=== PATIENT | female | born 1990 | race Caucasian/White ===

== ENCOUNTER 2018-04-30 17:51 | Emergency (ER) | payer OTHER, SELFPAY ==
[2018-04-30 17:57] VITALS: BP 138/91; PULSE 110; RESP 18; TEMP 37.1; O2SAT 98
--- NOTE | 2018-04-30 18:03 | DI.RAD_ITS ---
SYMPTOM/DIAGNOSIS: FELL ON OUTSTRETCHED HAND, PAIN LEFT WRIST: No fracture is identified. There is no evidence of dislocation. IMPRESSION: Negative left wrist.
[2018-04-30] MEDS: Acetaminophen 500 MG TAB 1000 MG PO (18:10)
--- NOTE | 2018-04-30 18:11 | ED.GENADUL_ITS ---
Discharge Plan Disposition Patient Disposition: HOME Condition: Good Discharge Details Chief Complaint: Orthopedic Clinical Impression: Acute pain of left wrist Primary Care Provider: MOISÉS KUHN ED Provider: Reji Calabrese Home Meds and New Rx's Prescriptions: No Action acetaminophen [Tylenol Extra Strength] 500 MG tablet 1,000 mg PO Q6H PRN RF: 0 bupropion HCl [Wellbutrin XL] 300 MG tablet extended release 24 hr 300 mg PO DAILY Qty: 30 RF: 0 dextroamphetamine-amphetamine [Adderall] 15 MG tablet 15 mg PO TID RF: 0 NuvaRing 1 EACH ring 1 ea VG monthly Qty: 3 RF: 3 ibuprofen 200 MG tablet 200 mg PO PRN PRNRF: 0 gabapentin 600 mg tablet 600 mg PO TID 30 Days Qty: 90 RF: 5 Discharge Instructions Instructions: Wrist Injury (ED) Additional Instructions: Please take Tylenol and Motrin as needed for pain. Please continue to use ice. Please use the wrist splint as directed. These follow-up with your primary care provider or orthopedic surgeon as soon as possible for reassessment. If your pain persists greater than a week you may need a repeat x-ray imaging. If you notice any worsening of your symptoms, or any new symptoms such as vomiting, diarrhea, fever, chills, shortness of breath, chest pain, numbness, weakness, or fainting , please return immediately to the emergency department for reevaluation. Please follow up with your primary care provider as soon as possible for reassessment and reevaluation. As always, it was a pleasure participating in your medical care today. Referrals: MOISÉS KUHN [Primary Care Provider] - Medical Decision Making This is a pleasant 28-year-old female who presents with left lateral wrist pain at the distal radius and anatomic snuffbox that occurred 6 hours ago after falling while snowboarding. Pain is made worse with movement of the thumb. Tenderness over the distal radius and anatomical snuffbox. Despite complaint of atypical sensation on the thumb she still demonstrates intact two- point discrimination up to 5 mm on the thumb for both pinprick and light touch. We will get an x-ray to evaluate for any acute fracture of the distal radius or carpals. I do feel that the patient would benefit from a thumb spica splint. We will give Tylenol here. Patient demonstrates an otherwise normal neurovascular exam. No significant joint or tendon laxity at the thumb. No clinical evidence of skiers thumb or gamekeeper's thumb. 6:41 PM X-ray results have returned and showed no evidence of acute fracture including any evidence of a scaphoid fracture. However because of the location of the patient's pain we will put her in a thumb spica wrist splint, and referred for eventual orthopedic or PCP follow-up. Recommend continue Tylenol and Motrin and ice as needed for pain. With no decrease in two-point discrimination, I do not feel that any emergent orthopedic evaluation is indicated, however she certainly needs follow-up. I have extensively reviewed the treatment plan and discharge instructions with the patient. I have addressed all patient concerns at this time. The patient was made aware of what symptoms to monitor for that would warrant a return to the emergency department. Discussed the plan with the patient, they demonstrate verbal understanding and agreement with our assessment and plan at this time. HPI General Date/Time Provider Initiated Documentation: 04/30/18 17:54 . HPI Narrative: Beth simmons is a pleasant 28-year-old female with no significant past medical history who presents today for evaluation of left wrist pain. She was snowboarding when she fell backwards and caught herself with her left wrist. She is right-hand dominant. She had immediate pain at the lateral aspect of the wrist by the distal radius and the anatomical snuffbox. She has been in a splint made by the amount ever since. It is been 6 hours since the initial incident. Patient denies any significant swelling, numbness or tingling. She denies any bleeding or bruising. She has taken ibuprofen. Pain is made worse with moving, improved by ibuprofen. No other complaints or modifying factors at this time. Related Data Home Medications Medication Instructions Recorded Confirmed acetaminophen [Tylenol Extra 1,000 mg PO Q6H PRN tab-cap 06/17/16 04/30/18 Strength] bupropion HCl [Wellbutrin XL] 300 mg PO DAILY #30 tab-cap 08/01/16 04/30/18 dextroamphetamine-amphetamine 15 mg PO TID tab-cap 08/30/16 04/30/18 [Adderall] NuvaRing 1 ea VG monthly #3 vag.ring 03/14/17 04/30/18 ibuprofen 200 mg PO PRN PRN 07/21/17 04/30/18 gabapentin 600 mg tablet 600 mg PO TID 30 Days #90 tab 12/31/17 04/30/18 Previous Rx's Medication Instructions Recorded NuvaRing 1 ea VG monthly #3 vag.ring 03/14/17 gabapentin 600 mg tablet 600 mg PO TID 30 Days #90 tab 12/31/17 Allergies Allergy/AdvReac Type Severity Reaction Status Date / Time Penicillins Allergy Unknown Unverified 04/30/18 18:06 General Stated Complaint: Orthopedic REY: 4 Review of Systems Review of Systems All systems reviewed & are unremarkable except as noted in HPI and below PFSH Medical History ADHD (attention deficit hyperactivity disorder), inattentive type Anxiety Chronic back pain Depression Right hip pain Ventricular premature beats Surgical History Reduction mammoplasty (~2006) Family History Mother Lupus Osteoporosis Hyperthyroidism Father Substance abuse Essential hypertension Grandfather Heart disease Grandfather No problems noted. Grandmother No problems noted. Grandmother No problems noted. Sister Hyperthyroidism Niece Hyperthyroidism Sister Hypothyroidism Brother No problems noted. Social History current occupational status: employed current occupation: photography Smoking and Tabacco status: Former Tobacco Use Exam Narrative Exam Narrative: 1.Const: Well-nourished, Well-developed, appearing stated age 2.Eyes: PERRL, no conjunctival injection, and symmetrical lids. 3.ENT: Atraumatic external nose and ears. Moist MM. Neck: Symmetric, trachea midline, No thyromegaly. 4.CVS: +S1/S2, No murmurs or gallops. Peripheral pulses 2+ and equal in all extremities. Brisk capillary refill in all extremities. 5.RESP: Unlabored respiratory effort. Clear to auscultation bilaterally. No wheezes rales or rhonchi 6.GI: Soft, Nontender/Nondistended, No hepatosplenomegaly. No guarding or rebound. 7.MSK: Normocephalic/Atraumatic, Extremities w/o deformity. No cyanosis or clubbing. Symmetrically palpable radial and ulnar pulses. Left hand: Capillary refill <2 seconds to all digits. Intact sensation to light touch of the radial, median and ulnar nerves demonstrated by testing in the dorsal web space of the thumb, the distal palmar aspect of the index finger, and the lateral surface of the fifth finger. 2 point discrimination intact to 5mm of discrimination in the affected digit, however the patient does have subjective alteration of sensation over the medial and lateral aspect of the thumb. In spite of this two-point discrimination is still intact and not reduced compared to the other fingers. 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 Intact recurrent median nerve as demonstrated by ability to move thumb fully through opposition, abduction and flexion, however significant movement is reduced secondary to pain with movement. Palpation of the wrist demonstrates pain noted at the distal radius in the anatomical snuffbox. No other significant abnormalities. 8.Skin: Warm, Dry. No rashes or lesions. 9.Neuro: loan assistant II-XII grossly intact. Sensation grossly intact, no focal neurologic deficits. 10.Psych: (AAO) x3. Appropriate mood and affect Course Vital Signs Temperature 37.1 C 04/30/18 17:57 Pulse 110 H 04/30/18 17:57 Respiratory Rate 18 04/30/18 17:57 Blood Pressure 138/91 H 04/30/18 17:57 Pulse Oximetry 98 04/30/18 17:57 Temperature 37.1 C 04/30/18 17:57 Temperature Source Tympanic 04/30/18 17:57 Pulse 110 H 04/30/18 17:57 Respiratory Rate 18 04/30/18 17:57 Blood Pressure 138/91 H 04/30/18 17:57 Blood Pressure Position Sitting 04/30/18 17:57 Pulse Oximetry 98 04/30/18 17:57 Oxygen Delivery Method Room Air 04/30/18 17:57 Oxygen Flow Rate 0 04/30/18 17:57 Pain Level 9 04/30/18 17:57
--- NOTE | 2018-04-30 18:38 | DI.VRAD_ITS ---
EXAM: XR Left Wrist Complete, 3 or more Views EXAM DATE/TIME: 04/30/2018 6:04 PM CLINICAL HISTORY: 28 years old, female; Pain; Wrist; Left; Additional info: Foosh, pain at distal rad/snuff box TECHNIQUE: XR Left wrist 3 or more views. COMPARISON: No relevant prior studies available. FINDINGS: Bones/joints: No displaced fracture or dislocation. Normal bone density. Soft tissues: Swelling of the dorsal wrist soft tissues. IMPRESSION: No fracture. Dictated and Authenticated by: Dylon Diallo MD. Ordering:SHARMIN Mendoza MD
[2018-04-30 18:50] VITALS: BP 138/91; PULSE 110; RESP 18; TEMP 37.1; O2SAT 98
== END 2018-04-30 18:50 | disposition home or self-care (01) ==
PROVIDERS: Emergency Provider Student in an Organized Health Care Education/Training Program; PCP Internal Medicine
DX: M25.532 Pain in left wrist (principal)
CPT/HCPCS: 99283; 73110; 99282; L3807

== ENCOUNTER → 2018-06-30 | Outpatient (CLI) | payer OTHER, SELFPAY ==
--- NOTE | 2018-06-30 06:00 | DI.RAD_ITS ---
SYMPTOM/DIAGNOSIS: LUMBAR RADICULOPATHY, INJECTION C-ARM: Fluoroscopy Time: 25.6 seconds Fluoroscopy was utilized by Dr. Zamorano during the performance of a lumbar epidural steroid injection. Please refer to the procedure report for complete details.
[2018-06-30 07:51] VITALS: BP 129/82; PULSE 88; RESP 18; TEMP 36.7; O2SAT 99
[2018-06-30] MEDS: Midazolam 2 MG/2 ML VIAL IVP ×2 (08:17→08:21)
[2018-06-30] MEDS: Lactated Ringers 1,000 ML 80 ML IV ×2 (08:26→08:29)
[2018-06-30 08:29] VITALS: BP 126/71; PULSE 73; RESP 12; O2SAT 100
--- NOTE | 2018-06-30 08:29 | PDOC.PAIN ---
Pain Clinic Procedure Note Current Active Problems Problem Status Onset Lumbar radiculitis Acute Lumbar Epidural Steroid Injection Procedure Note COMMENTS: I reviewed her clinic note from Ms. Valenzuela from this clinic on 06/24/18. I reviewed her most recent lumbar spine MRI. She did great with her last LESI from 09/17/17. SHAMIR HARPER has been referred to the [facility] for lumbar epidural steroid injection. The patient was greeted by the nurse who verified patients name and . Patient was then taken to the fluoroscopy suite. The patient was interviewed and the medial record reviewed. There were no medical, pharmacologic, radiographic, or other structural contraindications to attempting fluoroscopically guided lumbar epidural steroid injection. Risks and expected side effects as well as potential benefits of the procedure were reviewed and voiced concerns expressed. The patient consent form was signed and witnessed. Standard patient time-out procedure was performed. The patient was placed in the prone position on the fluoroscopy table and automated blood pressure cuff and pulse oximeter applied. The skin entry point for entering/approaching the epidural space at L5-S1 and marked. Following thorough chlorhexadine preparation of the skin and draping and 1% lidocaine infiltration of the skin entry point and subcutaneous tissues, a 18 gauge Touhy needle was placed under fluoroscopic guidance and with loss of resistance technique into the epidural space. Needle tip placement and depth were aided and confirmed by fluoroscopy. There was no paresthesia or return of blood or CSF through the needle. 1 cc's of Omnipaque 240 was injected with clear epidural spread confirmed with fluoroscopy. 80mg depomedrol was injected. There was not any unusual discomfort expressed by SHAMIR HARPER. Patient's vital signs were stable throughout the procedure and were as recorded in nursing records. Follow up plans and appointments were discussed with patient. Post procedure instruction was given as documented in nursing records and having met discharge criteria and was discharged from the [facility]. COMMENTS: If this procedure is found to be effective, it can be completed up to 3 times per 12 months.
[2018-06-30] MEDS: Omnipaque 240 MG/ML 50 ML BTL IJ (08:30)
[2018-06-30] MEDS: methylPREDNISolone ACETATE 40 MG/ML VIAL IJ (08:30)
== END ==
PROVIDERS: PCP Internal Medicine; Visit Provider Preventive Medicine Occupational Medicine
DX: M54.16 Radiculopathy, lumbar region (principal)
CPT/HCPCS: 62323; 72100; J1030; J2250; Q9967

== ENCOUNTER 2018-07-24 13:35 | Outpatient (REF) | payer OTHER, SELFPAY | END 2018-07-24 13:55 | LOC: LBN 13:35 | PROVIDERS: PCP Internal Medicine; Visit Provider Nurse Practitioner Women's Health | DX: R82.90 Unspecified abnormal findings in urine (principal) | CPT/HCPCS: 87077; 87086; 87186 ==

== ENCOUNTER 2018-08-25 07:41 | Outpatient (CLI) | payer OTHER, SELFPAY ==
--- NOTE | 2018-08-25 06:00 | DI.RAD_ITS ---
SYMPTOM/DIAGNOSIS: LUMBAR RADICULOPATHY C-ARM FLUOROSCOPY OF LUMBAR SPINE: Fluoroscopy Time: 30 sec Fluoroscopy was provided for guidance with Pain Clinic injection. Please see procedure note for details.
[2018-08-25 07:52] VITALS: BP 120/87; PULSE 77; RESP 18; TEMP 36.5; O2SAT 99
[2018-08-25 08:13] LABS: HCG Qual (Urine) Negative
[2018-08-25] MEDS: Midazolam 2 MG/2 ML VIAL IVP (08:33)
[2018-08-25] MEDS: Lactated Ringers 1,000 ML 80 ML IV (08:34)
[2018-08-25 08:41] VITALS: BP 111/65; PULSE 75; RESP 18; O2SAT 100
--- NOTE | 2018-08-25 08:42 | PDOC.PAIN ---
Pain Clinic Procedure Note Current Active Problems Problem Status Onset Lumbar radiculitis Acute LUMBAR / SACRAL TRANSFORAMINAL INJECTION SHAMIR HARPER has been referred to the [facility] for a transforaminal nerve root block and steroid injection. COMMENTS: This is her second right L5 TFESI. Her first one was 06/30/18. Patient was interviewed and the medical record reviewed. There were no medical, pharmacologic, radiographic or other structural contraindications to attempting fluoroscopically guided transforaminal nerve root block and epidural steroid injection. Risks and expected side effects as well as potential benefit of the procedure were reviewed and voiced concerns addressed. The printed consent form was signed and witnessed. Standard time-out procedure was performed. Patient was placed in the prone position on the fluoroscopy table and automated blood pressure cuff and pulse oximeter applied. Fluoroscopy was utilized to identify the right [id number] foramen between L5 and S1. A skin jonathan was made for the needle insertion site. A Chlorhexadine prepwas carried out, and sterile drapes were applied. Local anesthesia was achieved in the skin and subcutaneous tissues. A 22 gauge 5 curved tip spinal needle was then inserted, advanced with fluoroscopic guidance into the neural foramen, confirmed on the lateral view. After negative aspiration, 1 ml of Omnipaque 240 was injected confirming position in A/P and lateral views. This showed a good spread of dye transforaminally into the epidural space. There was no vascular update with contrast injection under continuous fluoroscopy. 15 mg of Dexamethasone was injected, followed by 0.5 ml of 1% Xylocaine flush for the nerve root block, as well. There was no unusual discomfort expressed.The needle was withdrawn. The patient tolerated the procedure well. A Band-Aid was applied. Vital signs were stable throughout the procedure and were as recorded in nursing records. If given, dosages of intravenous drugs for anxiolysis and analgesia were documented in nursing records. Follow up plans and appointments were discussed. Post procedure instruction was given as documented in nursing records and patient was discharged in the care of an identified crew car driver. COMMENTS: Complete relief of her right leg pain after the procedure. CC: MOISÉS KUHN
[2018-08-25] MEDS: Omnipaque 240 MG/ML 50 ML BTL IJ (08:43)
[2018-08-25] MEDS: Dexamethasone Sod. Phos./Pres-Free 10 MG/ML VIAL IJ (08:43)
== END 2018-08-25 08:01 ==
PROVIDERS: PCP Internal Medicine; Visit Provider Preventive Medicine Occupational Medicine
DX: M54.16 Radiculopathy, lumbar region (principal)
CPT/HCPCS: 64483; 72100; 81025; J2250; Q9967

== ENCOUNTER 2018-09-17 15:28 | Emergency (ER) | payer OTHER, SELFPAY ==
[2018-09-17 15:33] VITALS: BP 152/103; PULSE 92; RESP 20; TEMP 36.7; O2SAT 93
--- NOTE | 2018-09-17 16:33 | ED.GENADUL_ITS ---
Discharge Plan Disposition Patient Disposition: HOME Condition: Stable Discharge Details Chief Complaint: Nk/Back Pain Clinical Impression: Lumbar radicular pain, Sciatica of right side Primary Care Provider: MOISÉS KUHN ED Provider: Maurice Barragan Home Meds and New Rx's Prescriptions: New hydrocodone-acetaminophen [[place]] 5-325 mg tablet 1 tab PO Q6H PRN (Reason: pain) Qty: 8 RF: 0 prednisone 20 mg tablet 20 mg PO DAILY Qty: 10 RF: 0 Continued gabapentin 600 mg tablet 600 mg PO TID 30 Days Qty: 90 RF: 5 acetaminophen [Tylenol Extra Strength] 500 MG tablet 1,000 mg PO Q6H PRN RF: 0 bupropion HCl [Wellbutrin XL] 300 MG tablet extended release 24 hr 450 mg PO DAILY Qty: 30 RF: 0 dextroamphetamine-amphetamine [Adderall] 15 MG tablet 15 mg PO TID RF: 0 ibuprofen 200 MG tablet 800 mg PO PRN PRNRF: 0 NuvaRing 0.12-0.015 mg/24 hr ring 1 vag ring VG monthly Qty: 9 RF: 6 Discharge Instructions Instructions: Sciatica (ED) Additional Instructions: Continue to take your normally prescribed home medications and follow-up with your primary care provider as already arranged for reassessment. Return to the emergency department for any fever, saddle anesthesia, significant change to your symptoms. Referrals: MOISÉS KUHN [Primary Care Provider] - (Keep your appointment as scheduled or follow-up next week for reassessment if not improving) Discharge Data Discharge Date/Time-TO BE ENTERED AT DEPARTURE: 09/17/18 17:36 Medical Decision Making Patient presenting to the emergency department for chief complaint of back pain. Patient states long ongoing history of back pain since she was 9 years of age. Patient reports that she has been seeing the pain clinic for back injections but have not been helping much. She states that she awoke at approximately 545 this morning with severe back pain radiating down her right leg. Patient does state that this is similar in nature to previous episodes but more severe and intense. Patient denies any fever, change in bowel or bladder function, saddle anesthesia. Physical exam shows significant tenderness to lumbar spine and paraspinal tissue with severe tenderness to palpation of the right sciatic notch and right buttock. Pulses and DTRs are intact bilateral lower extremities and equal. Physical exam shows no signs of cauda equina, doubt central cord syndrome, doubt epidural abscess. Physical exam is consistent with sciatica and pain down the S2 nerve root. Plan to check and postvoid residual, give limited prescription of narcotics, and place patient on steroids on top of her other medications she already takes for her chronic back pain. Postvoid residual showed 18 mL's in the bladder which I feel is appropriate within normal limits. Patient given 1 [place] and prednisone in the emergency department and prescription for similar to use at home. Drug database was queried and no signs of narcotic abuse are noted. Narcotic consents were signed and discussed with patient nonnarcotic pain therapies that she may use. Return precautions discussed. After discussion of diagnosis and plan of care patient has no further needs, questions, or concerns and states clear understanding to return to the emergency department for any worsening symptoms. HPI General Mode of arrival: wheelchair . Date/Time Provider Initiated Documentation: 09/17/18 15:47 . Limitations to Documentation: no limitations . Information obtained by: patient and RN notes reviewed . History of Present Illness 28 year old F presents to the emergency department with the chief complaint of back pain, described as severe and similar to prior episodes, with intensity rated at 10. Quality is described as sharp, and is localized to the back. Patient extremity (right). Patient started experiencing this hour(s) (10) and it has been constant. No relieving factors improve symptom(s), No exacerbating factors reported . Patient notes no other symptoms.. Patient did receive the following treatments prior to arrival, NSAID Related Data Home Medications Medication Instructions Recorded Confirmed acetaminophen [Tylenol Extra 1,000 mg PO Q6H PRN tab-cap 06/17/16 09/17/18 Strength] bupropion HCl [Wellbutrin XL] 450 mg PO DAILY #30 tab-cap 08/01/16 09/17/18 dextroamphetamine-amphetamine 15 mg PO TID tab-cap 08/30/16 09/17/18 [Adderall] ibuprofen 800 mg PO PRN PRN 07/21/17 09/17/18 gabapentin 600 mg tablet 600 mg PO TID 30 Days #90 tab 06/24/18 09/17/18 etonogestrel-ethinyl estradiol 1 vag ring VG monthly #9 each 09/02/18 09/17/18 0.12 mg -0.015 mg/24 hr vaginal ring hydrocodone-acetaminophen [[place]] 1 tab PO Q6H PRN #8 tab 09/17/18 prednisone 20 mg PO DAILY #10 tab 09/17/18 Previous Rx's Medication Instructions Recorded gabapentin 600 mg tablet 600 mg PO TID 30 Days #90 tab 06/24/18 etonogestrel-ethinyl estradiol 1 vag ring VG monthly #9 each 09/02/18 0.12 mg -0.015 mg/24 hr vaginal ring hydrocodone-acetaminophen [[place]] 1 tab PO Q6H PRN #8 tab 09/17/18 prednisone 20 mg PO DAILY #10 tab 09/17/18 Allergies Allergy/AdvReac Type Severity Reaction Status Date / Time Penicillins Allergy Unknown Unverified 09/17/18 15:37 General Stated Complaint: Nk/Back Pain REY: 3 Review of Systems Constitutional Denies fever(s) Cardiovascular Denies chest pain and Denies dyspnea on exertion Respiratory Denies cough and Denies dyspnea on exertion Gastrointestinal Denies abdominal pain, Denies change in bowel habits, Denies diarrhea, Denies nausea and Denies vomiting Genitourinary Denies urinary incontinence Musculoskeletal Reports as per HPI and Reports back pain Neurologic Denies sensory deficit [facility] Medical History ADHD (attention deficit hyperactivity disorder), inattentive type Anxiety Anxiety (Acute 03/07/16) Chronic back pain Contraception (Acute 03/14/17) Depression Depression (Acute 03/07/16) Right hip pain Ventricular premature beats Surgical History H/O bilateral breast reduction surgery (Acute) Family History Mother Lupus Osteoporosis Hyperthyroidism Father Substance abuse Essential hypertension Grandfather Heart disease Grandfather No problems noted. Grandmother No problems noted. Grandmother No problems noted. Sister Hyperthyroidism Niece Hyperthyroidism Sister Hypothyroidism Brother No problems noted. Social History Smoking/Tobacco Use Status: Former Tobacco Use Alcohol Intake: current Alcohol Intake frequency: holidays/special occasions only Alcohol type: beer, wine and hard liquor Drug use: Daily Substance use type: marijuana Details: Last time used last night current occupation: photography Do you feel safe in your relationship?: Yes Female Reproductive History Menstrual Age of Menarche: 9 control method: vaginal ring History History 4 Para 2 Hx # Term Pregnancies Multiple births Hx # Pregnancies Ectopic pregnancies AB induced Hx Number of Living Children AB spontaneous Exam Const General: cooperative and no acute distress Orientation: alert, awake and oriented x3 Neck Neck: normal visual inspection, full ROM and no meningeal signs Resp Effort & Inspection: normal respiratory effort Auscultation: clear to auscultation bilaterally Cardio Rate: regular rate Rhythm: regular rhythm Heart Sounds: S1 normal and S2 normal GI Palpation: no hepatosplenomegaly, no aortic enlargement, no masses and no pulsatile masses Back/Spine/Pelvis Thoracic/Lumbar Spine: pain with thoraco-lumbar ROM, paraspinal tenderness (right lower lumbar), thoraco-lumbar ROM limited, No thoracic spinal tenderness, lumbar spinal tenderness and straight leg raise positive Pelvis: no pain with anterior-posterior compression, no pain with lateral compression, buttock tenderness on the right and sciatic notch tenderness on the right Neuro General: alert, awake and oriented x3 DTR's: Rt Patellar: 2+, Lt Patellar: 2+, Rt Ankle: 2+ and Lt Ankle: 2+ Extrem Right lower extremity: hip/thigh Details: normal to inspection, knee Details: normal to inspection and lower leg Details: normal to inspection Course Vital Signs Temperature 36.7 C 09/17/18 15:33 Pulse 92 H 09/17/18 15:33 Respiratory Rate 20 09/17/18 15:33 Blood Pressure 152/103 H 09/17/18 15:33 Pulse Oximetry 93 L 09/17/18 15:33 Temperature 36.7 C 09/17/18 15:33 Temperature Source Skin 09/17/18 15:33 Pulse 92 H 09/17/18 15:33 Respiratory Rate 20 09/17/18 15:33 Respiratory Effort Non-Labored 09/17/18 15:41 Blood Pressure 152/103 H 09/17/18 15:33 Blood Pressure Position Sitting 09/17/18 15:33 Pulse Oximetry 93 L 09/17/18 15:33 Oxygen Delivery Method Ambu-Bag 09/17/18 15:33 Oxygen Flow Rate 0 09/17/18 15:33 Pain Level 10 07/18/19 15:33
[2018-09-17] MEDS: HYDROcodone 5/Acetaminophen 325 TAB PO (17:02)
[2018-09-17] MEDS: predniSONE 20 MG TAB 60 MG PO (17:03)
[2018-09-17 17:47] VITALS: BP 130/91; PULSE 68; RESP 18; O2SAT 99
== END 2018-09-17 17:36 | disposition home or self-care (01) ==
PROVIDERS: Emergency Provider Nurse Practitioner Family; PCP Internal Medicine
DX: M54.16 Radiculopathy, lumbar region (principal); M54.31 Sciatica, right side
CPT/HCPCS: 81025; 99283; J7512

== ENCOUNTER 2020-05-19 05:04 | Outpatient (CLI) | payer OTHER, SELFPAY ==
--- NOTE | 2020-05-19 | DI.RAD_ITS ---
EXAM: XR LUMBAR SPINE COMPLETE CLINICAL HISTORY: CHRONIC LOW BACK PAIN, RECENT SURGERY L4-5. TECHNIQUE: 2D digital imaging was performed. COMPARISON: CR LUMBAR SPINE COMPLETE from 03/30/2017 CR LUMBAR SPINE COMPLETE from 03/30/2017 MR MRI LSPINE W/O CNRST from 07/08/2017 MR MRI LSPINE W/O CNRST from 07/08/2017 FINDINGS: There is partial sacralization of L5. The left transverse process is sacralized. The vertebral bodi es are well maintained in height. There is mild narrowing of the L4-5 disc space. The remaining dis c spaces are well maintained. There are mild facet degenerative changes at L4-5. No spondylolysis o r spondylolisthesis is seen. IMPRESSION: Mild degenerative changes at L4-5. DATA REPOSITORY: RADIATION DOSE DELIVERED:
== END 2020-05-19 05:24 ==
PROVIDERS: Visit Provider Nurse Practitioner Acute Care
DX: M47.816 Spondylosis without myelopathy or radiculopathy, lumbar region (principal)
CPT/HCPCS: 72110

== ENCOUNTER 2020-07-06 03:32 | Outpatient (CLI) | payer OTHER, SELFPAY ==
[2020-07-06 08:20] LABS: Abs Immature Grans 0.05 10^3/uL (0.0-0.06); Absolute Basophil Count 0.07 10^3/uL (0.0-0.2); Absolute Eosinophil Count 0.55 10^3/uL (0.0-0.7); Absolute Neutrophil Count 9.29 10^3/uL (1.2-6.7); Basophils % 0.5; HGB 13.7 g/dL (11.2-15.7); Immature Grans % 0.4; Lymphocytes % 18.7; MCH 32.9 pg (27.0-33.0); MCHC 34.3 % (32.0-36.0); MCV 96.2 fL (80-95); MPV 9.7 fL (8.0-11.0); Monocytes % 9.4; Nucleated RBC 0 %; Platelet Count 347 10^3/uL (130-400); RBC 4.16 10^6/uL (3.93-5.22); RDW 12.7 % (11.7-14.6); WBC 13.87 10^3/uL (4.4-10.8)
[2020-07-06 08:21] LABS: Absolute Lymphocyte Count 2.59 10^3/uL (1.2-3.4)
[2020-07-06 09:16] LABS: ALT 25 U/L (14-59); AST 15 U/L (15-37); Albumin 3.9 g/dL (3.4-5.0); Alkaline Phosphatase 95 U/L (46-116); Anion Gap 5.8 mmol/L (3-11); BUN 8 mg/dL (7-18); Bilirubin, Total 0.3 mg/dL (0.2-1.0); CO2 32.2 mmol/L (21.0-32.0); CREATININE 0.9 mg/dL (0.55-1.02); Chloride 105 mmol/L (98-107); Glucose 77 mg/dL (74-106); Magnesium 1.8 mg/dL (1.8-2.4); Sodium 143 mmol/L (136-145); TSH 1.07 uIU/mL (0.36-3.74)
[2020-07-06 09:32] LABS: Calculated LDL 142 mg/dL (<100); Cholesterol 234 mg/dL (<200); HDL Cholesterol 51 mg/dL (40-60); Triglyceride 209 mg/dL (<150)
== END 2020-07-06 03:33 | disposition home or self-care (01) ==
PROVIDERS: Visit Provider Nurse Practitioner Acute Care
DX: F33.9 Major depressive disorder, recurrent, unspecified (principal); Z13.220 Encounter for screening for lipoid disorders; R25.2 Cramp and spasm
CPT/HCPCS: 36415; 80053; 80061; 83735; 84443; 85025

== ENCOUNTER 2020-07-17 09:59 | Outpatient (REF) | payer OTHER, SELFPAY ==
--- NOTE | 2020-07-17 08:20 | PAPFT_PTH ---
PATIENT: Alexandra Terrazas LOC: [facility] U#:[id number] AGE/SX: 30/F ROOM: RE07/17/[address]: Nancy Rich NP : [id number] BED: DIS: 07/17/2020 SPEC #: [id number] RECD: 07/17/20 12:54 STATUS: ED REQ #: [id number] LISSETTE: 07/17/20 08:[address]: Layla NAJERA,Nancy DEPT: [facility] Cytology RECD BY: Concha Mcgarry ENTERED: 07/17/20 12:54 SP TYPE: PAPFT OT DR: Unknown,Unknown Tissues: 1 - CX/ENDOCX FOR PAP SMEARS Procedures: PAP THIN PREP/UVM Screening HPV DNA PROBE Comments: [id number]
== END 2020-07-17 10:00 | disposition home or self-care (01) ==
LOC: LBN 09:59
PROVIDERS: Visit Provider Nurse Practitioner Women's Health
DX: Z12.4 Encounter for screening for malignant neoplasm of cervix (principal); Z11.51 Encounter for screening for human papillomavirus (HPV)
CPT/HCPCS: 88142; 87624

== ENCOUNTER 2020-10-30 21:12 | Emergency (ER) | payer OTHER, SELFPAY ==
[2020-10-30 21:17] VITALS: BP 146/96; PULSE 105; RESP 20; TEMP 36.4; O2SAT 99
[2020-10-30] MEDS: HYDROmorphone 2 MG/ML VIAL (21:26)
--- NOTE | 2020-10-30 21:30 | DI.RAD_ITS ---
Exam(s) XR ANKLE RT COMPLETE EXAM: XR ANKLE RT COMPLETE CLINICAL HISTORY: trauma. TECHNIQUE: 2D digital imaging was performed. COMPARISON: No exams were available for comparison FINDINGS: BONES: There is a comminuted fracture in the distal 3rd of the right fibula. This lies 8 cm above th e ankle joint. The fracture is mildly displaced. There is a transverse fracture through the medial malleolus with mild diastasis. There is a mildly displaced fracture of the posterior malleolus. No bony destructive lesion is seen. JOINTS: There is widening of the ankle mortise. SOFT TISSUE: Soft tissue swelling about the ankle is noted particularly medially. IMPRESSION: 1. Fractures involving the distal tibia and fibula as described above. 2. Widening of the ankle mortise. DATA REPOSITORY: RADIATION DOSE DELIVERED:
--- NOTE | 2020-10-30 21:54 | W.ED.GENAD ---
Discharge Plan Disposition Patient Disposition: HOME Condition: Stable Discharge Details Clinical Impression: Closed displaced trimalleolar fracture of right ankle Primary Care Provider: Andrews De Jesus ED Provider: Ramon Dutton Home Meds and New Rx's Prescriptions: Continued escitalopram oxalate 20 mg tablet 20 mg PO DAILY RF: 0 acetaminophen [Tylenol Extra Strength] 500 MG tablet 1,000 mg PO Q6H PRN RF: 0 bupropion HCl [Wellbutrin XL] 300 MG tablet extended release 24 hr 150 mg PO DAILY Qty: 30 RF: 0 dextroamphetamine-amphetamine [Adderall] 15 MG tablet 15 mg PO BID RF: 0 ibuprofen 200 MG tablet 800 mg PO PRN PRNRF: 0 gabapentin 600 mg Tablet Extended Release 24 Hr 600 mg PO DAILY RF: 0 Discharge Instructions Instructions: Oxycodone, Rapid Release (By mouth), Ankle Fracture (ED) Additional Instructions: Take ibuprofen and Tylenol for pain. Take oxycodone 1 tablet by mouth every 12 hours for severe pain only. Your ankle fracture will need orthopedic surgical repair. Please follow-up with [facility] tomorrow -- . No eating or drinking after midnight tonight. Use crutches and no weight bearing on right foot until instructed by orthopedics. Keep your leg elevated tonight. Please contact your primary care physician to arrange follow-up. Return to the ER immediately for any worsening or new concerning symptoms. Medical Decision Making 2158 -- 30-year-old female presents with right ankle injury after trip and fall down embankment just prior to arrival. Patient neurovascular intact distally. Concern for ankle fracture. Dilaudid 1 mg IM administered for severe pain. 2300 -- xray rt ankle interpreted by radiology: Trimalleolar fracture. Unstable ankle mortise. Ankle will require surgical repair. No orthopedic surgeon available today or tomorrow at [facility]. I called next closest hospital [facility] and discussed with dyehouse worker. I requested transfer to orthopedics. [facility] responded and noted that they would like to see the patient tomorrow in clinic and recommended splinting and discharge. Posterior splint with stirrups was applied by me. Patient neurovascular intact post splint application. Mild manipulation performed. Patient provided crutches and was able to ambulate with crutches. She was instructed to remain nonweightbearing right foot. Patient advised to not eat or drink anything after midnight and to follow-up with [facility] first thing in the morning. HPI General Mode of arrival: wheelchair. Date/Time Provider Initiated Documentation: 10/30/20 21:31. Limitations to Documentation: no limitations. Information obtained by: patient. HPI Narrative: 30-year-old female presents with chief complaint of right ankle pain. Patient notes pain started about 10 minutes prior to arrival when she tripped down an embankment. Pain is severe, constant, worse with any movement of her ankle. No associated numbness or tingling. No other injury. No proximal lower leg pain. Related Data Home Medications Medication Instructions Recorded Confirmed acetaminophen [Tylenol Extra 1,000 mg PO Q6H PRN tab-cap 06/17/16 10/30/20 Strength] bupropion HCl [Wellbutrin XL] 150 mg PO DAILY #30 tab-cap 08/01/16 10/30/20 dextroamphetamine-amphetamine 15 mg PO BID tab-cap 08/30/16 10/30/20 [Adderall] ibuprofen 800 mg PO PRN PRN 07/21/17 10/30/20 escitalopram oxalate 20 mg tablet 20 mg PO DAILY 07/17/20 10/30/20 gabapentin 600 mg PO DAILY 10/30/20 10/30/20 Allergies Allergy/AdvReac Type Severity Reaction Status Date / Time Penicillins Allergy Unknown Unverified 07/17/20 08:07 General Stated Complaint: Orthopedic REY: 3 Review of Systems Musculoskeletal Musculoskeletal: Reports as per HPI Neurologic Neurologic: Reports as per HPI [facility] Medical History ADHD (attention deficit hyperactivity disorder), inattentive type Anxiety Anxiety (03/07/16) Chronic back pain Contraception (03/14/17) nuvaring Depression Depression (03/07/16) Reports trial with Zoloft in the past - not helpful per pt Right hip pain Ventricular premature beats Surgical History H/O bilateral breast reduction surgery S/P lumbar microdiscectomy x2, complications with second surgery, leaking spinal fluid. Pt was hospitalized for one month Family History Mother Lupus Osteoporosis Hyperthyroidism Father Substance abuse alchol, recreational drugs, cigarettes Essential hypertension 25 Grandfather Heart disease Grandfather No problems noted. Grandmother No problems noted. Grandmother No problems noted. Sister Hyperthyroidism Niece Hyperthyroidism Sister Hypothyroidism Brother No problems noted. Social History Smoking/Tobacco Use Status: Former Tobacco Use Smoking risk assessment performed?: Yes Alcohol Intake: current Alcohol Intake frequency: holidays/special occasions only Alcohol type: beer, wine and hard liquor Drug use: Daily Substance use type: marijuana Details: Last time used last night current occupation: photography Do you feel safe at home: Yes Do you feel safe in your relationship?: Yes Female Reproductive History Menstrual Age of Menarche: 9 control method: other (partner with vasectomy) History History 4 Para 2 Hx # Term Pregnancies Multiple births Hx # Pregnancies Ectopic pregnancies AB induced Hx Number of Living Children AB spontaneous Exam Const General: cooperative and no acute distress Neck Neck: trachea midline Resp Auscultation: clear to auscultation bilaterally, no rales, no rhonchi and no wheezes Cardio Rate: regular rate and not tachycardic Rhythm: regular rhythm Back/Spine/Pelvis Cervical Spine: cervical ROM normal, No cervical spinal tenderness and No step off deformity Thoracic/Lumbar Spine: No thoracic spinal tenderness and No lumbar spinal tenderness Skin General skin exam: no rashes or lesions noted Neuro General: patient alert, patient awake, patient oriented x3 and tone normal Extrem General: no edema Right lower extremity: ankle Details: tenderness and swelling; no lacerations Psych Appearance: grossly normal Mental Status: mental status grossly normal Course Vital Signs Vital signs: Vital Signs Temperature 36.4 C L 10/30/20 21:17 Pulse 105 H 10/30/20 21:17 Respiratory Rate 20 10/30/20 21:17 Blood Pressure 146/96 H 10/30/20 21:17 Pulse Oximetry 99 10/30/20 21:17 Temperature 36.4 C L 10/30/20 21:17 Temperature Source Temporal Artery Scan 10/30/20 21:17 Pulse 105 H 10/30/20 21:17 Respiratory Rate 20 10/30/20 21:17 Blood Pressure 146/96 H 10/30/20 21:17 Blood Pressure Position Sitting 10/30/20 21:17 Pulse Oximetry 99 08/30/21 21:17 Oxygen Delivery Method Room Air 10/30/20 21:17 Oxygen Flow Rate 0 10/30/20 21:17 Pain Level 10 10/30/20 21:26
[2020-10-30] MEDS: fentaNYL 100 MCG/2 ML VIAL IVP ×2 (21:59→23:09)
--- NOTE | 2020-10-30 22:20 | DI.VRAD_ITS ---
PROCEDURE INFORMATION: Exam: XR Right Ankle Exam date and time: 10/30/2020 9:32 PM Age: 30 years old Clinical indication: Pain; Right; Patient HX: Trauma - PT rolled ankle TECHNIQUE: Imaging protocol: XR Right ankle. Views: 3 or more views. COMPARISON: No relevant prior studies available. FINDINGS: Bones/joints: Fractures are present. A transverse fracture across the medial malleolus shows moderate diastasis. A fracture is present across the posterior malleolus, mildly displaced. A comminuted oblique fracture is present at the distal fibular diaphysis. The medial ankle mortise is wide. The ankle is not dislocated. The talar dome is intact. Soft tissues: Soft tissue swelling surrounds the ankle. IMPRESSION: 1. Trimalleolar fracture. 2. Unstable ankle mortise. Dictated and Authenticated by: Charanjit Ellis MD. Ordering:MARGAUX Navarro MD
[2020-10-30 23:15] VITALS: TEMP 36.8
[2020-10-30] MEDS: oxyCODONE 10 MG TAB PO (23:15)
[2020-10-30 23:16] VITALS: TEMP 36.8
[2020-10-30] MEDS: Ibuprofen 600 MG TAB PO (23:16)
[2020-10-30 23:51] VITALS: BP 146/96; PULSE 105; RESP 20; TEMP 36.8; O2SAT 99
== END 2020-10-30 23:42 | disposition home or self-care (01) ==
PROVIDERS: Emergency Provider Student in an Organized Health Care Education/Training Program; PCP Nurse Practitioner Acute Care
DX: S82.851A Displaced trimalleolar fracture of right lower leg, initial encounter for closed fracture (principal); W17.81XA Fall down embankment (hill), initial encounter
CPT/HCPCS: 29515; 36415; 96372; 96374; 96376; 99284; 73610; J3010

== ENCOUNTER 2022-01-03 02:52 | Outpatient (CLI) | payer BC, SELFPAY ==
[2022-01-03 08:59] LABS: TSH (W/Ref FT4) 1.52 uIU/mL (0.36-3.74)
[2022-01-03 19:42] LABS: FSH 7.7 mIU/mL (See Note)
[2022-01-04 08:34] LABS: DHEA Sulfate 69 ug/dL (96-512)
[2022-01-09 11:49] LABS: Testosterone, Total 26 ng/dL (8-60)
== END 2022-01-03 02:53 | disposition home or self-care (01) ==
LOC: LBO 02:52
PROVIDERS: PCP Nurse Practitioner Acute Care; Visit Provider Nurse Practitioner Women's Health
DX: N93.9 Abnormal uterine and vaginal bleeding, unspecified (principal)
CPT/HCPCS: 36415; 82627; 84403; 83001; 84443